=== PATIENT | male | born 1990 | race Caucasian/White ===

== ENCOUNTER 2018-03-11 16:39 | Emergency (ER) | payer BC ==
[2018-03-11 17:43] VITALS: BP 114/75
--- NOTE | 2018-03-11 18:15 | ED ---
Lower Extremity - HPI Summary HPI Summary: 27 yr old male with the complaint of right foot pain, onset back in Nov when he dropped a 50 pound piece of wood on foot. Pain is in lateral right foot and worse with walking. Pain has persisted. No swelling. No other complaints. - History of Current Complaint Chief Complaint: UCLowerExtremity Stated Complaint: RT FOOT PAIN Time Seen by Provider: 03/11/18 17:47 Pain Intensity: 4 - Allergies/Home Medications Allergies/Adverse Reactions: Allergies Allergy/AdvReac Type Severity Reaction Status Date / Time No Known Allergies Allergy Verified 03/11/18 17:43 Home Medications: Home Medications Ibuprofen TAB* [Advil TAB*] 1,200 mg PO Q6H PRN 03/11/18 [History Confirmed ] PMH/Surg Hx/FS Hx/Imm Hx Infectious Disease History: No Infectious Disease History: Denies: Traveled Outside the [place] in Last 30 Days - Family History Known Family History: Positive: None Negative: Blood Disorder - Social History Alcohol Use: None Substance Use Type: Reports: None Smoking Status (MU): Heavy Every Day Tobacco Smoker Type: Cigarettes Amount Used/How Often: 1/2- 3/4 PPD Length of Time of Smoking/Using Tobacco: since age 14 Have You Smoked in the Last Year: Yes Review of Systems Positive: Other - right foot pain All Other Systems Reviewed And Are Negative: Yes Physical Exam Triage Information Reviewed: Yes Vital Signs On Initial Exam: Initial Vitals Temp Pulse Resp BP Pulse Ox 98.3 F 81 15 114/75 100 03/11/18 17:34 03/11/18 17:34 03/11/18 17:34 03/11/18 17:34 03/11/18 17:34 Vital Signs Reviewed: Yes Appearance: Positive: Well-Appearing, No Pain Distress Skin: Positive: Warm, Skin Color Reflects Adequate Perfusion Head/Face: Positive: Normal Head/Face Inspection Eyes: Positive: EOMI ENT: Positive: Normal ENT inspection Neck: Positive: Nontender Respiratory/Lung Sounds: Positive: Clear to Auscultation, Breath Sounds Present Cardiovascular: Positive: RRR. Negative: Murmur Musculoskeletal: Positive: Other - Right foot Some tenderness over the lateral foot, but no STS, no brusing, no redness. Good DP and PT pulse present. Right ankle non tender and no swelling. Neurological: Positive: Sensory/Motor Intact, Alert, Oriented to Person Place, Time, CN Intact II-III Psychiatric: Positive: Normal Diagnostics - Vital Signs Vital Signs Temp Pulse Resp BP Pulse Ox 03/11/18 17:34 98.3 F 81 15 114/75 100 - Laboratory Lab Statement: Any lab studies that have been ordered have been reviewed, and results considered in the medical decision making process. Lower Extremity Course/Dx - Course Course Of Treatment: 27 yr old with foot contusion. Plan Dc and follow up with orthopedics. - Diagnoses Provider Diagnoses: Contusion of right foot Discharge - Sign-Out/Discharge Documenting (check all that apply): Discharge/Admit/Transfer - Discharge Plan Condition: Good Disposition: HOME Patient Education Materials: Foot Contusion (ED) Referrals: Emre Nguyen MD [Medical Doctor] - No Primary Care Phys,NOPCP [Primary Care Provider] - - Billing Disposition and Condition Condition: GOOD Disposition: HOME
--- NOTE | 2018-03-11 18:48 | RAD ---
HISTORY: Right foot pain COMPARISONS: None VIEWS: 3, Frontal, lateral, and oblique views of the right foot FINDINGS: BONE DENSITY: Normal. BONES: There is no displaced fracture. JOINTS: There is no arthropathy. ALIGNMENT: There is no dislocation. SOFT TISSUES: Unremarkable. OTHER FINDINGS: None. IMPRESSION: NO ACUTE OSSEOUS INJURY. IF SYMPTOMS PERSIST, RECOMMEND REPEAT IMAGING.
== END 2018-03-11 19:16 | disposition home or self-care (01) ==
LOC: UCCORT 16:39
DX: S90.31XA Contusion of right foot, initial encounter (principal); W20.8XXA Other cause of strike by thrown, projected or falling object, initial encounter; Y93.9 Activity, unspecified; Y92.9 Unspecified place or not applicable; F17.210 Nicotine dependence, cigarettes, uncomplicated
CPT/HCPCS: 99211; G0463

== ENCOUNTER 2018-07-12 09:21 | Emergency (ER) | payer BC ==
[2018-07-12 09:40] VITALS: BP 130/80
--- NOTE | 2018-07-12 10:04 | UC ---
Neck Pain HPI - HPI Summary HPI Summary: The patient is a 28-year-old male who presents here for evaluation of neck pain. Yesterday he was at a trampoline park with his son. His knees buckled on the trampoline and he had a padded wall for the left side of his face. He had some mild neck pain after that injury. He denies any headache or loss of consciousness. He states that when he woke up today his neck was very stiff. On awakening he could not move his head from side to side. He took some ibuprofen and a warm shower and his range of motion has increased markedly. His neck pain has decreased from a 10 out of 10 to a 5 out of 10. He has no arm pain weakness or paresthesias. Denies any bowel or bladder dysfunction. No prior history of a neck injury. - History of Current Complaint Chief Complaint: UCTrauma Stated Complaint: NECK/SHOULDER PAIN SPORTS INJURY (YESTERDAY) Time Seen by Provider: 07/12/18 09:36 Hx Obtained From: Patient Onset/Duration Of Injury/Symptoms: Hours Mechanism Of Injury: Blunt Trauma Timing: Constant Onset/Duration: Sudden Onset Severity: Moderate Pain Intensity: 5 Pain Scale Used: 0-10 Numeric Location: Diffuse - right and left lateral neck discomfort Character: Aching, Spasmotic Aggravating Factors: Position, Movement Alleviating Factors: Heat, OTC Meds - Allergies/Home Medications Allergies/Adverse Reactions: Allergies Allergy/AdvReac Type Severity Reaction Status Date / Time No Known Allergies Allergy Verified 07/12/18 09:40 PMH/Surg Hx/FS Hx/Imm Hx Previously Healthy: Yes - Surgical History Surgical History: None - Family History Known Family History: Negative: Blood Disorder - Social History Alcohol Use: None Substance Use Type: None Smoking Status (MU): Heavy Every Day Tobacco Smoker Type: Cigarettes Amount Used/How Often: 1/2- 3/4 PPD Length of Time of Smoking/Using Tobacco: since age 14 Have You Smoked in the Last Year: Yes Review Of Systems Constitutional: Positive: Negative Skin: Positive: Negative Eyes: Positive: Negative ENT: Positive: Negative Respiratory: Positive: Negative Cardiovascular: Positive: Negative Gastrointestinal: Positive: Negative Genitourinary: Positive: Negative Musculoskeletal: Positive: Arthralgia, Myalgia Neurological: Positive: Negative Psychological: Positive: Negative All Other Systems Reviewed And Are Negative: Yes Physical Exam Triage Information Reviewed: Yes Appearance: Well-Appearing, No Pain Distress, Well-Nourished Vital Signs: Initial Vital Signs Temp 97.7 F 07/12/18 09:35 Pulse 78 07/12/18 09:35 Resp 19 07/12/18 09:35 BP 130/80 07/12/18 09:35 Pulse Ox 100 07/12/18 09:35 Vital Signs Reviewed: Yes Eyes: Positive: Conjunctiva Clear ENT: Positive: Hearing grossly normal, Other - no TMJ tenderness. Negative: Nasal congestion, Nasal drainage, Tonsillar swelling, Tonsillar exudate, Muffled voice, Hoarse voice, Dental tenderness Dental Exam: Normal Neck: Positive: Other: - no midline hilda tenderness, right and left trapezius tenderness/pain turning head to R>L full flexion and extension Respiratory: Positive: Lungs clear, Normal breath sounds, No respiratory distress Cardiovascular: Positive: RRR, No Murmur Musculoskeletal: Positive: ROM Intact, No Edema Neurological Exam: Normal - strength 5/5, sensory intact/DTRs symmetrical and normal. cn 2-12 intact Neurological: Positive: Alert, Muscle Tone Normal Psychological Exam: Normal Skin Exam: Normal Neck Pain Course/Dx - Course Course Of Treatment: Because the patient is A&Ox3, has no focal neurologic findings, no midline c-spine tenderness, no evidence of intoxication and no painful distracting injuries there is no need to obtain radiographic studies to evaluate the C-spinie. - Differential Dx/Diagnosis Provider Diagnoses: cervical strain Discharge - Sign-Out/Discharge Documenting (check all that apply): Patient Departure All imaging exams completed and their final reports reviewed: No Studies - Discharge Plan Condition: Stable Disposition: HOME Prescriptions: Cyclobenzaprine TAB* [Flexeril TAB*] 5 mg PO TID PRN #12 tab PRN Reason: Spasms Ibuprofen TAB* [Motrin TAB*] 600 mg PO QID PRN #40 tab PRN Reason: Pain Patient Education Materials: Cervical Strain (ED), Soft Cervical Collar (ED) Forms: *Work Release Referrals: No Primary Care Phys,NOPCP [Primary Care Provider] - Additional Instructions: don't take muscle relaxant and drive or work RECHECK FOR NEW SYMPTOMS I suggest your return here in 4-7 days if not better - Billing Disposition and Condition Condition: STABLE Disposition: Home
== END 2018-07-12 10:05 | disposition home or self-care (01) ==
LOC: UCCORT 09:21
DX: S16.1XXA Strain of muscle, fascia and tendon at neck level, initial encounter (principal); Y93.44 Activity, trampolining; Y92.39 Other specified sports and athletic area as the place of occurrence of the external cause; F17.210 Nicotine dependence, cigarettes, uncomplicated
CPT/HCPCS: 99213; G0463

== ENCOUNTER 2019-07-09 09:55 | Emergency (ER) | payer BC | END 2019-07-09 10:51 | disposition left against medical advice (07) | LOC: UCCORT 09:55 | DX: H92.01 Otalgia, right ear (principal); Z53.21 Procedure and treatment not carried out due to patient leaving prior to being seen by health care provider ==

== ENCOUNTER 2019-09-11 12:24 | Emergency (ER) | payer BC, OTHER ==
[2019-09-11 12:51] VITALS: BP 120/75
--- NOTE | 2019-09-11 13:22 | UC ---
UC General HPI - HPI Summary HPI Summary: 29-year-old male comes in with a chief complaint of needing suture removal. Patient cut his left fifth finger AND some wire on August 31, 2019 in the head 6 sutures placed in a 2 cm laceration on his left fifth finger in [facility]. Patient healing well no drainage. He only gets gets pain if he catches the sutures on something. No complaint of decreased range of motion or decreased sensation. - History of Current Complaint Chief Complaint: UCLaceration Stated Complaint: SUTURE REMOVAL (NOT HERE) Time Seen by Provider: 09/11/19 13:03 Pain Intensity: 0 - Allergy/Home Medications Allergies/Adverse Reactions: Allergies Allergy/AdvReac Type Severity Reaction Status Date / Time No Known Allergies Allergy Verified 09/11/19 12:47 Home Medications: Home Medications NK [No Home Medications Reported] 09/11/19 [History Confirmed 09/11/19] PMH/Surg Hx/FS Hx/Imm Hx Previously Healthy: Yes - Surgical History Surgical History: None - Family History Known Family History: Positive: Non-Contributory Negative: Blood Disorder - Social History Alcohol Use: None Substance Use Type: None Smoking Status (MU): Heavy Every Day Tobacco Smoker Type: Cigarettes Amount Used/How Often: 1/2- 3/4 PPD Length of Time of Smoking/Using Tobacco: since age 14 Have You Smoked in the Last Year: Yes Review of Systems All Other Systems Reviewed And Are Negative: Yes Constitutional: Positive: Negative Skin: Positive: Other - see hpi Eyes: Positive: Negative ENT: Positive: Negative Respiratory: Positive: Negative Cardiovascular: Positive: Negative Gastrointestinal: Positive: Negative Motor: Positive: Negative Neurovascular: Positive: Negative Musculoskeletal: Positive: Negative Neurological: Positive: Negative Psychological: Positive: Negative Is Patient Immunocompromised?: No Physical Exam Triage Information Reviewed: Yes Appearance: Well-Appearing, No Pain Distress, Well-Nourished Vital Signs: Initial Vital Signs Temp 98.2 F 09/11/19 12:47 Pulse 71 09/11/19 12:47 Resp 13 09/11/19 12:47 BP 120/75 09/11/19 12:47 Pulse Ox 99 09/11/19 12:47 Vital Signs Reviewed: Yes Eye Exam: Normal Eyes: Positive: Conjunctiva Clear Neck: Positive: Supple Respiratory: Positive: No respiratory distress Musculoskeletal: Positive: Strength Intact, ROM Intact Neurological: Positive: Alert, Muscle Tone Normal Psychological: Positive: Age Appropriate Behavior Skin: Positive: Other - Left fifth finger has a 2 cm linear laceration with 6 sutures and it I removed those without any complications. Finger has normal capillary refill normal sensation and full range of motion full-strength. Course/Dx - Diagnoses Provider Diagnosis: Encounter for removal of sutures Discharge ED - Sign-Out/Discharge Documenting (check all that apply): Patient Departure All imaging exams completed and their final reports reviewed: No Studies - Discharge Plan Condition: Stable Disposition: HOME Patient Education Materials: Stitches Removal (ED) Referrals: [facility] [place] [facility] [Outside] Additional Instructions: FOLLOW UP WITH YOUR DOCTOR IF NOT COMPLETELY IMPROVED. GET REEVALUATED SOONER IF NOT IMPROVING OR WORSE OR ANY QUESTIONS OR CONCERNS. - Billing Disposition and Condition Condition: STABLE Disposition: Home
--- OUTSIDE RECORDS SUMMARY | 2019-09-13 16:02 | XMS REPORT | Continuity of Care Document ---
:1990 External Reference #:[id number] Author Name Josafat Seay PA-C Address [address] , [place] [address] Problems Description No Information Available Social History Type Date Description Comments Sex Unknown Allergies, Adverse Reactions, Alerts Description No Information Available Medications Active Medications SIG Qnty Indications Ordering Provider Date Amoxicillin/Clavulanat take 1 tab 14tabs H66.91 John 07/09/2019 e Potassium twice a day x 7 MD Sonya 875-125mg days Tablets Immunizations Description No Information Available Vital Signs Date Vital Result Comment 07/09/2019 11:18am Heart Rate 71 /min BP Systolic 122 mmHg BP Diastolic 70 mmHg Respiratory Rate 16 /min Body Temperature 98.8 F O2 % BldC Oximetry 97 % Results Description No Information Available Procedures Description No Information Available Medical Devices Description No Information Available Encounters Type Date Location Provider Dx Diagnosis Office Visit 07/09/2019 [facility] Josafat Seay H66.91 Otitis media, 10:57a Walk-in at [place] [facility] unspecified, right Drugs ear Assessments Date Code Description Provider 07/09/2019 H66.91 Otitis media, unspecified, right ear Josafat Seay PA-C Plan of Treatment 07/09/2019 - JACKI RochaCH66.91 Otitis media, unspecified, right earNew Medication:Amoxicillin/Clavulanate Potassium 875-125 mg - take 1 tab twice a day x 7 daysFollow up:Follow up: Should symptoms not resolve with treatment please return Fevers, chills, night sweats,discharge from ear. Increased or redness. Please go to the ER or return Functional Status Description No Information Available Mental Status Description No Information Available Referrals Description No Information Available
== END 2019-09-11 13:26 | disposition home or self-care (01) ==
LOC: UCCORT 12:24
DX: Z48.02 Encounter for removal of sutures (principal); F17.210 Nicotine dependence, cigarettes, uncomplicated
CPT/HCPCS: 99211; G0463